=== PATIENT | male | born 1960 | race Two or more races ===

== ENCOUNTER 2017-09-22 02:47 | Emergency (ER) | payer OTHER ==
[2017-09-22] MEDS: NAPROXEN 500 MG TABLET PO (03:27)
[2017-09-22 04:14] LABS: ETHANOL < 10 mg/dL (0-10)
== END 2017-09-22 03:53 | disposition home or self-care (01) ==
LOC: ER 02:47
DX: S39.012A Strain of muscle, fascia and tendon of lower back, initial encounter (principal); X50.9XXA Other and unspecified overexertion or strenuous movements or postures, initial encounter; Y93.89 Activity, other specified; Y99.8 Other external cause status; Y92.89 Other specified places as the place of occurrence of the external cause
CPT/HCPCS: 36415; 99283; G0480